=== PATIENT | male | born 1950 | race Hispanic/Latino ===

== ENCOUNTER 2021-05-04 09:39 | Emergency (ER) | payer OTHER, MEDICARE ==
[~2021-05-04] VITALS: Ht 167.6 cm; Wt 69.9 kg
[2021-05-04 09:43] VITALS: BP 159/80
[2021-05-04] MEDS ORDERED: HYDROCODONE/ACETAMINOPHEN 10/325 MG TAB PO SCH (12:15)
[2021-05-04 13:00] VITALS: BP 132/74
[2021-05-04 13:03] LABS: BASOPHILS % (AUTO) 0.7 % (0.0-5.0); EOSINOPHILS % (AUTO) 2.5 % (0.0-8.0); HEMATOCRIT 38.6 % (42-54); LYMPHOCYTES % (AUTO) 16.6 % (21.0-51.0); MEAN CORPUSCULAR HEMOGLOBIN 29.3 pg (27.0-33.0); MEAN CORPUSCULAR HGB CONC 31.6 g/dL (32.0-36.0); MEAN CORPUSCULAR VOLUME 92.8 fL (79-99); MONOCYTES % (AUTO) 10.6 % (3.0-13.0); PLATELET COUNT (AUTO) 386 K/uL (130-400); RED BLOOD CELL COUNT(AUTO) 4.16 MIL/uL (4.50-6.20); WHITE BLOOD COUNT (AUTO) 16.3 K/uL (4.8-10.8)
[2021-05-04 13:13] LABS: CREATININE 1.6 mg/dL (0.5-1.5); POTASSIUM 3.8 mmol/L (3.5-5.1)
[2021-05-04 13:17] LABS: ALBUMIN 3.6 g/dL (3.5-5.0); BILIRUBIN,TOTAL 0.4 mg/dL (0.2-1.0); CRP QUANTITATIVE 63.5 mg/L (0.00-9.0); TOTAL PROTEIN, SERUM 8.1 g/dL (6.0-8.3)
[2021-05-04] MEDS ORDERED: TRAM1TAB PO (14:20)
[2021-05-04] MEDS ORDERED: CLIN300C10 PO (14:20)
== END 2021-05-04 14:48 | disposition home or self-care (01) ==
LOC: EDH 09:39
DX: N49.2 Inflammatory disorders of scrotum (principal); N43.3 Hydrocele, unspecified; E78.5 Hyperlipidemia, unspecified; I10 Essential (primary) hypertension; E66.9 Obesity, unspecified; K21.9 Gastro-esophageal reflux disease without esophagitis; Z88.5 Allergy status to narcotic agent; Z90.49 Acquired absence of other specified parts of digestive tract
CPT/HCPCS: 36415; 76870; 80053; 85025; 86140

== ENCOUNTER 2023-07-14 16:51 | Emergency (ER) | payer OTHER, MEDICARE ==
[~2023-07-14] VITALS: Ht 172.7 cm; Wt 108.9 kg
[~2023-07-14 16:51] MED LIST: CLIN-141 PO; TRAM1TAB2 PO
[2023-07-14 17:18] LABS: BASOPHILS # (AUTO) 0.09 K/uL (0.00-0.20); BASOPHILS % (AUTO) 0.7 % (0.0-5.0); EOSINOPHILS # (AUTO) 0.08 K/uL (0.00-0.70); EOSINOPHILS % (AUTO) 0.6 % (0.0-8.0); HEMATOCRIT 33.2 % (42-54); IMMATURE GRANULOCYTE ABSOLUTE 0.05 K/uL (0-1); LYMPHOCYTES # (AUTO) 0.9 K/uL (1.0-4.8); LYMPHOCYTES % (AUTO) 6.9 % (21.0-51.0); MEAN CORPUSCULAR HEMOGLOBIN 28.8 pg (27.0-33.0); MEAN CORPUSCULAR HGB CONC 31.6 g/dL (32.0-36.0); MEAN CORPUSCULAR VOLUME 91.2 fL (79-99); MONOCYTES # (AUTO) 1.1 K/uL (0.1-1.0); MONOCYTES % (AUTO) 8.9 % (3.0-13.0); NEUTROPHILS # (AUTO) 10.4 K/uL (1.8-7.7); NEUTROPHILS % (AUTO) 82.5 % (40.0-77.0); PLATELET COUNT (AUTO) 290 K/uL (130-400); RED BLOOD CELL COUNT(AUTO) 3.64 MIL/uL (4.50-6.20); RED CELL DISTRIBUTION WIDTH 13.5 % (11.0-15.5); WHITE BLOOD COUNT (AUTO) 12.6 K/uL (4.8-10.8)
[2023-07-14 17:28] LABS: INR 0.97 (0.85-1.15); PROTHROMBIN TIME 11.3 SEC (9.6-11.6)
[2023-07-14 17:29] LABS: PARTIAL THROMBOPLASTIN TIME 31.9 SEC (26.3-35.5)
[2023-07-14] MEDS ORDERED: ACETAMINOPHEN 500 MG TABLET PO ONE (17:30)
[2023-07-14] MEDS ORDERED: 0.9%NACL 1000ML 1,000 ML IV ONE (17:30)
[2023-07-14 17:41] LABS: RAPID GROUP A STREP negative (NEGATIVE)
[2023-07-14 17:45] LABS: POTASSIUM 3.7 mmol/L (3.5-5.1)
[2023-07-14 17:51] LABS: INFLUENZA TYPE A Negative For Type A (NEGATIVE); INFLUENZA TYPE B Negative For Type B (NEGATIVE); SARS-CoV-2, RNA, NAAT POSITIVE SARS CoV-2 (NEGATIVE)
[2023-07-14 17:54] LABS: ALBUMIN 3.3 g/dL (3.5-5.0); BILIRUBIN,TOTAL 0.5 mg/dL (0.2-1.0); TOTAL PROTEIN, SERUM 7.1 g/dL (6.0-8.3)
[2023-07-14] MEDS ORDERED: ONDANSETRON 4MG INJ IVP ONE (18:00)
[2023-07-14 18:05] LABS: APPEARANCE,URINE CLEAR (CLEAR); BILIRUBIN,URINE NEGATIVE (NEGATIVE); COLOR,URINE LIGHT-YELLOW (YELLOW); GLUCOSE, URINE (UA) 30 mg/dL (NEGATIVE); KETONES,URINE NEGATIVE (NEGATIVE); LEUKOCYTE ESTERASE ,URINE NEGATIVE Leu/uL (NEGATIVE); NITRATE,URINE NEGATIVE (NEGATIVE); OCCULT BLOOD,URINE MODERATE (NEGATIVE); PROTEIN,URINE 200 mg/dL (NEGATIVE); UROBILINOGEN,URINE 0.2 mg/dL (0.2-1.0)
[2023-07-14] MEDS ORDERED: IBUPROFEN 200 MG TAB ONE (18:14)
[2023-07-14] MEDS ORDERED: IBUPROFEN 400 MG TABLET ONE (18:15)
[2023-07-14 18:24] LABS: ADD UA MICROSCOPIC YES
[2023-07-14 18:25] LABS: BACTERIA,URINE RARE /HPF (None Seen); MUCUS,URINE RARE LPF (None Seen); SQUAMOUS EPITHELIAL CELL,UR RARE /HPF (0-2)
[2023-07-14 18:26] VITALS: TEMP 102.7
[2023-07-14] MEDS ORDERED: IBUPROFEN 600 MG TABLET PO ONE (18:30)
[2023-07-14 18:45] VITALS: BP 162/80; PULSE 85; RESP 19; O2SAT 95
[2023-07-14] MEDS ORDERED: ONDA4TAB10 PO (18:45)
[2023-07-14] MEDS ORDERED: NIRM1TAB PO (18:45)
== END 2023-07-14 19:08 | disposition home or self-care (01) ==
LOC: EDH 16:51
DX: U07.1 COVID-19 (principal); E11.9 Type 2 diabetes mellitus without complications; I10 Essential (primary) hypertension; Z88.5 Allergy status to narcotic agent
CPT/HCPCS: 99284; 96374; 71045; 87635; 96361; 82550; 84484; 80053; 85025; 85610; 85730; 87040 ×2; 87088; 87880; 87804 ×2; 83605; 81001; 36415; C9803; J7030; J2405

== ENCOUNTER → 2024-06-25 | Outpatient (CLI) | payer OTHER, MEDICARE ==
[~2024-06-25] MED LIST changes: +NIRM1TAB PO; +ONDA-243 PO
== END | disposition home or self-care (01) ==
LOC: RAH 13:58
PROVIDERS: ATTEND Internal Medicine
DX: I83.891 Varicose veins of right lower extremity with other complications (principal); I73.9 Peripheral vascular disease, unspecified
CPT/HCPCS: 93925